=== PATIENT | female | born 1945 | race Caucasian/White ===

== ENCOUNTER → 2017-12-12 | Outpatient (CLI) | payer MEDICARE ==
[~2017-12-12] MED LIST: AMLO5TAB2 PO; ASPI-1012 PO; CARV6.25 PO; CYCL10TA7 PO; FURO40TA5 PO; MIRALAX; NAPR-1180 PO; OMEP20TA25 PO; TRAM50TA4 PO
== END | disposition home or self-care (01) ==
LOC: OIH 10:50
PROVIDERS: ATTEND Internal Medicine
DX: M16.0 Bilateral primary osteoarthritis of hip (principal)
CPT/HCPCS: 73521

== ENCOUNTER → 2018-09-24 | Outpatient (CLI) | payer MEDICARE ==
[~2018-09-24] MED LIST changes: -AMLO5TAB2 PO; +AMLO5TAB9 PO
== END | disposition home or self-care (01) ==
LOC: OIH 10:54
PROVIDERS: ATTEND Internal Medicine
DX: M47.816 Spondylosis without myelopathy or radiculopathy, lumbar region (principal); M54.17 Radiculopathy, lumbosacral region; M62.830 Muscle spasm of back; R59.9 Enlarged lymph nodes, unspecified; M48.061 Spinal stenosis, lumbar region without neurogenic claudication
CPT/HCPCS: 72100

== ENCOUNTER → 2018-10-15 | Outpatient (CLI) | payer MEDICARE | END | disposition home or self-care (01) | LOC: RAH 10:57 | PROVIDERS: ATTEND Orthopaedic Surgery | DX: S83.282A Other tear of lateral meniscus, current injury, left knee, initial encounter (principal); S83.242A Other tear of medial meniscus, current injury, left knee, initial encounter; M17.12 Unilateral primary osteoarthritis, left knee; M25.462 Effusion, left knee; M71.22 Synovial cyst of popliteal space [Baker], left knee; M85.88 Other specified disorders of bone density and structure, other site; X58.XXXA Exposure to other specified factors, initial encounter; Y93.89 Activity, other specified; Y92.89 Other specified places as the place of occurrence of the external cause; Y99.8 Other external cause status | CPT/HCPCS: 73721 ==

== ENCOUNTER → 2019-02-02 | Outpatient (CLI) | payer MEDICARE | END | disposition home or self-care (01) | LOC: OIH 10:07 | PROVIDERS: ATTEND Internal Medicine | DX: M16.12 Unilateral primary osteoarthritis, left hip (principal); M85.852 Other specified disorders of bone density and structure, left thigh | CPT/HCPCS: 73502 ==

== ENCOUNTER → 2019-04-15 | Outpatient (CLI) | payer MEDICARE ==
[~2019-04-15] MED LIST changes: +ATOR10TA PO; +CALC-877 PO; +DICLOFENAC PO; +[UNRECOGNIZED DRUG - OTHER] PO
== END | disposition home or self-care (01) ==
LOC: OIH 08:17
PROVIDERS: ATTEND Internal Medicine
DX: M47.814 Spondylosis without myelopathy or radiculopathy, thoracic region (principal); I10 Essential (primary) hypertension
CPT/HCPCS: 71046

== ENCOUNTER 2019-04-21 15:00 | Inpatient (IN) | payer MEDICARE ==
[~2019-04-21] VITALS: Ht 160 cm; Wt 71.0 kg
[~2019-04-21 15:00] MED LIST changes: -ATOR10TA PO; -CALC-877 PO; -CYCL10TA7 PO; -DICLOFENAC PO; -FURO40TA5 PO; -NAPR-1180 PO; -[UNRECOGNIZED DRUG - OTHER] PO
[2019-04-21 15:55] LABS: APPEARANCE,URINE Clear (CLEAR); BILIRUBIN,URINE Negative (NEGATIVE); COLOR,URINE Yellow (YELLOW); GLUCOSE, URINE (UA) Negative (NEGATIVE); KETONES,URINE Negative (NEGATIVE); LEUKOCYTE ESTERASE ,URINE Negative (NEGATIVE); NITRATE,URINE Negative (NEGATIVE); OCCULT BLOOD,URINE Negative (NEGATIVE); PH,URINE 5.5 (5.0-8.0); PROTEIN,URINE Negative (NEGATIVE); UROBILINOGEN,URINE 0.2 mg/dL (0.2-1.0)
[2019-04-21 16:02] LABS: INR 1.03 (0.85-1.15); PROTHROMBIN TIME 10.8 SEC (9.6-11.6)
[2019-04-21 16:21] VITALS: BP 138/59
[2019-04-21] MEDS ORDERED: ATOR10TA PO (16:40)
[2019-04-21] MEDS ORDERED: PHARMACY COMMUNICATION MISC SCH (16:45)
[2019-04-21] MEDS ORDERED: [UNRECOGNIZED DRUG - OTHER] PO (16:51)
[2019-04-21] MEDS ORDERED: CALC-877 PO (16:51)
[2019-04-21] MEDS ORDERED: DICLOFENAC PO (16:51)
[2019-04-22] VITALS (25 sets, daily range): BP systolic 127–170; BP diastolic 50–80
[2019-04-22] MEDS: CEFAZOLIN SODIUM 1 GM VIAL IVP SCH ×3 (06:00→21:29)
[2019-04-22] MEDS ORDERED: ACETAMINOPHEN EXTRA STRENGTH 500 MG TABLET ONE (08:20)
[2019-04-22] MEDS ORDERED: KETOROLAC TROMETHAMINE 15MG/ML ONE (08:20)
[2019-04-22] MEDS ORDERED: OXYCODONE HCL 10 MG TAB.SR.12H PO ONE (08:21)
[2019-04-22] MEDS ORDERED: CELECOXIB 200 MG CAP ONE (08:21)
[2019-04-22] MEDS ORDERED: CEFAZOLIN SODIUM 1 GM VIAL ONE ×4 (08:22)
[2019-04-22] MEDS ORDERED: TRANEXAMIC ACID 1000MG/10ML IV ONE (08:23)
[2019-04-22] MEDS ORDERED: LACTATED RINGERS 1000ML 1,000 ML IV ONE (08:28)
[2019-04-22] MEDS ORDERED: KETOROLAC TROMETHAMINE 15MG/ML IV SCH (09:00)
[2019-04-22] MEDS ORDERED: ACETAMINOPHEN EXTRA STRENGTH 500 MG TABLET PO SCH (09:00)
[2019-04-22] MEDS ORDERED: OXYCODONE HCL 10 MG TAB.SR.12H PO SCH (09:00)
[2019-04-22] MEDS ORDERED: CELECOXIB 200 MG CAP PO SCH (09:00)
[2019-04-22] MEDS ORDERED: TRANEXAMIC ACID 1,000 MG in SODIUM CHLORIDE 0.9% 100 ML IV SCH (09:00)
--- NOTE | 2019-04-22 09:06 | NUR ---
POTENTIAL FOR INFECTION: NO SHAVING NEEDED TO LEFT KNEE / LEG ASSESSED PER CHARLI VALLE. WIPED WITH BETY: 2% CHLORHEXIDINE GLUCONATE CLOTH PATIENTS PRE-OP SKIN PREP.
[2019-04-22] MEDS ORDERED: MIDAZOLAM HCL 1 MG/ML 2ML VIAL ONE (09:42)
[2019-04-22] MEDS ORDERED: LIDOCAINE PF 2% 5ML ABBOJECT ONE ×2 (10:11→10:13)
[2019-04-22] MEDS ORDERED: SUCCINYLCHOLINE 200MG/10ML SYR ONE (10:11)
[2019-04-22] MEDS ORDERED: GLYCOPYRROLATE 1 MG/5 ML SYRINGE ONE (10:11)
[2019-04-22] MEDS ORDERED: DEXAMETHASONE SOD PHOSPHATE 10MG/ML 1ML VIAL ONE (10:11)
[2019-04-22] MEDS ORDERED: FENTANYL CITRATE PF 50 MCG/1 ML 2ML VIAL ONE (10:12)
[2019-04-22] MEDS ORDERED: NEOSTIGMINE 5MG/5ML SYR IV ONE (10:12)
[2019-04-22] MEDS ORDERED: ONDANSETRON HCL 4 MG/2 ML VIAL ONE (10:12)
[2019-04-22] MEDS ORDERED: ROCURONIUM 10MG/1ML SYR 10 MG/ML ML ONE (10:12)
[2019-04-22] MEDS ORDERED: PROPOFOL 10 MG/ML 20ML VIAL IV ONE (10:13)
[2019-04-22] MEDS ORDERED: ROPIVACAINE 0.5% 5MG/ML 30ML IJ ONE (10:20)
[2019-04-22] MEDS ORDERED: SODIUM CHLORIDE 0.9% 10 ML VIAL ONE (10:52)
[2019-04-22] MEDS ORDERED: PHENYLEPHRINE HCL 10 MG/ML 1ML VIAL IV ONE (11:45)
[2019-04-22] MEDS ORDERED: DiphenhydrAMINE HCL 50 MG/ML VIAL IVP PRN (12:30)
[2019-04-22] MEDS ORDERED: ONDANSETRON HCL 4 MG/2 ML VIAL IVP PRN (12:30)
[2019-04-22] MEDS ORDERED: TRAMADOL HCL 50 MG TABLET PO PRN (12:30)
[2019-04-22] MEDS: ACETAMINOPHEN EXTRA STRENGTH 500 MG TABLET PO SCH ×2 (12:30→21:31)
[2019-04-22] MEDS ORDERED: OXYCODONE HCL 5 MG TAB PO PRN (12:30)
[2019-04-22] MEDS: SODIUM CHLORIDE 0.9% 1000ML 1,000 ML IV SCH ×3 (13:05→21:46)
[2019-04-22] MEDS ORDERED: CEFAZOLIN SODIUM 1 GM VIAL IVP SCH (17:30)
[2019-04-22] MEDS: CELECOXIB 200 MG CAP PO SCH (21:29)
[2019-04-22] MEDS: PREGABALIN 25 MG CAP PO SCH (21:29)
[2019-04-22] MEDS: ASPIRIN 81MG TAB.CHEW PO SCH (21:29)
[2019-04-22] MEDS: FAMOTIDINE 20MG TAB 20 MG TAB PO SCH (21:29)
[2019-04-22] MEDS: ATORVASTATIN CALCIUM 10 MG TABLET PO SCH (21:30)
[2019-04-22] MEDS: CARVEDILOL 6.25 MG TABLET PO SCH (21:30)
[2019-04-22] MEDS: CALCIUM CARBONATE 500 MG TABLET PO SCH (21:30)
[2019-04-23] VITALS (7 sets, daily range): BP systolic 116–151; BP diastolic 50–97
[2019-04-23] MEDS: KETOROLAC TROMETHAMINE 15MG/ML IV PRN ×3 (01:55→13:51)
[2019-04-23] MEDS: CEFAZOLIN SODIUM 1 GM VIAL IVP SCH (04:03)
[2019-04-23] MEDS: ACETAMINOPHEN EXTRA STRENGTH 500 MG TABLET PO SCH ×3 (04:04→21:37)
[2019-04-23] MEDS: SODIUM CHLORIDE 0.9% 1000ML 1,000 ML IV SCH (08:27)
[2019-04-23] MEDS: PANTOPRAZOLE SODIUM 40 MG TABLET.DR PO SCH (08:41)
[2019-04-23] MEDS: FAMOTIDINE 20MG TAB 20 MG TAB PO SCH ×2 (09:00→21:36)
[2019-04-23] MEDS: CARVEDILOL 6.25 MG TABLET PO SCH ×2 (09:00→21:36)
[2019-04-23] MEDS: PREGABALIN 25 MG CAP PO SCH ×2 (10:17→21:36)
[2019-04-23] MEDS: CELECOXIB 200 MG CAP PO SCH ×2 (10:17→21:36)
[2019-04-23] MEDS: CALCIUM CARBONATE 500 MG TABLET PO SCH ×2 (10:17→21:36)
[2019-04-23] MEDS: POLYETHYLENE GLYCOL 3350 17 GM POWD.PACK PO SCH (10:18)
[2019-04-23] MEDS: AMLODIPINE BESYLATE 5 MG TAB PO SCH (10:18)
[2019-04-23] MEDS: ASPIRIN 81MG TAB.CHEW PO SCH ×2 (10:18→21:35)
[2019-04-23] MEDS: OXYCODONE HCL 5 MG TAB PO PRN ×2 (15:24→23:31)
--- NOTE | 2019-04-23 17:00 | NUR ---
INITIAL AND REFERRAL MET W PATIENT ALONE, [place], LIVES W SPOUSE, GARY MURRAY, DRIVES, HAS A WALKER, DECLINING SHOWER CHAIR, STATES MOBILE HOME BATHROOM IS TOO SMALL. CONSENT AND REFERRAL TO [facility] CALLED CHART TAGGED Addendum: 04/24/19 at 1849 by CHRISTINA GONZALEZ RN CM Amended: Links added.
[2019-04-23] MEDS: ATORVASTATIN CALCIUM 10 MG TABLET PO SCH (21:36)
[2019-04-23] MEDS: TEMAZEPAM 15 MG CAPSULE PO PRN (21:42)
[2019-04-24 03:55] VITALS: BP 127/63
[2019-04-24] MEDS: ACETAMINOPHEN EXTRA STRENGTH 500 MG TABLET PO SCH ×3 (04:33→20:30)
[2019-04-24] MEDS: PANTOPRAZOLE SODIUM 40 MG TABLET.DR PO SCH (07:30)
[2019-04-24 08:00] VITALS: BP 128/63
[2019-04-24] MEDS: POLYETHYLENE GLYCOL 3350 17 GM POWD.PACK PO SCH (08:51)
[2019-04-24] MEDS: FAMOTIDINE 20MG TAB 20 MG TAB PO SCH ×2 (08:51→20:53)
[2019-04-24] MEDS: PREGABALIN 25 MG CAP PO SCH ×2 (08:52→20:53)
[2019-04-24] MEDS: CALCIUM CARBONATE 500 MG TABLET PO SCH ×2 (08:52→20:53)
[2019-04-24] MEDS: ASPIRIN 81MG TAB.CHEW PO SCH ×2 (08:52→20:53)
[2019-04-24] MEDS: CELECOXIB 200 MG CAP PO SCH ×2 (08:52→20:53)
[2019-04-24] MEDS: AMLODIPINE BESYLATE 5 MG TAB PO SCH (09:00)
[2019-04-24] MEDS: CARVEDILOL 6.25 MG TABLET PO SCH ×2 (09:00→20:53)
[2019-04-24] MEDS: KETOROLAC TROMETHAMINE 15MG/ML IV PRN (11:27)
[2019-04-24 12:00] VITALS: BP 126/59
[2019-04-24] MEDS: OXYCODONE HCL 5 MG TAB PO PRN ×2 (15:19→20:54)
[2019-04-24 16:00] VITALS: BP 129/44
--- NOTE | 2019-04-24 19:00 | NUR ---
DRESSING CHANGE DONE NO SIGNS OF BLEEDING NOTED NO SIGNS OF INFECTION NOTED
[2019-04-24 19:28] VITALS: BP 124/63
[2019-04-24] MEDS: ATORVASTATIN CALCIUM 10 MG TABLET PO SCH (20:53)
[2019-04-24] MEDS: TEMAZEPAM 15 MG CAPSULE PO PRN (22:16)
[2019-04-24 23:15] VITALS: BP 129/52
[2019-04-25 03:00] VITALS: BP 129/75
[2019-04-25] MEDS: OXYCODONE HCL 5 MG TAB PO PRN ×2 (04:23→09:02)
[2019-04-25] MEDS: ACETAMINOPHEN EXTRA STRENGTH 500 MG TABLET PO SCH ×2 (04:28→13:22)
[2019-04-25] MEDS: PANTOPRAZOLE SODIUM 40 MG TABLET.DR PO SCH (06:43)
[2019-04-25 08:00] VITALS: BP 128/69
[2019-04-25] MEDS: CELECOXIB 200 MG CAP PO SCH (09:02)
[2019-04-25] MEDS: FAMOTIDINE 20MG TAB 20 MG TAB PO SCH (09:02)
[2019-04-25] MEDS: PREGABALIN 25 MG CAP PO SCH (09:02)
[2019-04-25] MEDS: POLYETHYLENE GLYCOL 3350 17 GM POWD.PACK PO SCH (09:03)
[2019-04-25] MEDS: AMLODIPINE BESYLATE 5 MG TAB PO SCH (09:03)
[2019-04-25] MEDS: ASPIRIN 81MG TAB.CHEW PO SCH (09:03)
[2019-04-25] MEDS: CALCIUM CARBONATE 500 MG TABLET PO SCH (09:03)
[2019-04-25] MEDS: CARVEDILOL 6.25 MG TABLET PO SCH (09:03)
[2019-04-25 11:47] VITALS: BP 115/63
[2019-04-25] MEDS ORDERED: BISACODYL 10 MG SUPP.RECT RC PRN (12:30)
[2019-04-25] MEDS ORDERED: ASPI-1005 PO (14:03)
[2019-04-25] MEDS ORDERED: HYDR-4457 PO (14:03)
--- NOTE | 2019-04-25 16:00 | NUR ---
pt stated understanding of all d/c instruction on after care for a knee replacement including wound care, signs and symptoms of infection, follow up w/ dr parker, [facility] of walker and going so snf [facility]; d/c report called and faxed to [facility] and they will be sending there van to pick pt up. dressing to right knee changed in preperation for pt leaving.
== END 2019-04-25 16:45 | DRG 470 ==
LOC: DAHIP 04-22 06:51 → 4AH 04-22 12:53
PROVIDERS: ADMIT Orthopaedic Surgery; ATTEND Orthopaedic Surgery
PROC: 0SRD0J9 Replacement of Left Knee Joint with Synthetic Substitute, Cemented, Open Approach (ICD-10-PCS; principal; 2019-04-22 10:08)
DX: M17.12 Unilateral primary osteoarthritis, left knee (principal); I10 Essential (primary) hypertension; K21.9 Gastro-esophageal reflux disease without esophagitis; M79.7 Fibromyalgia; M48.00 Spinal stenosis, site unspecified; Z96.651 Presence of right artificial knee joint; I25.10 Atherosclerotic heart disease of native coronary artery without angina pectoris; Z87.891 Personal history of nicotine dependence
CPT/HCPCS: 36415; 81003; 82948; 85610; 87641; 88304; 88311; 93005; 96374; 97039; G0378; J0330; J0690; J1100; J1885; J2001; J2250; J2370; J2405; J2704; J2710; J2795; J3010; J3490; J7030; J7120

== ENCOUNTER → 2019-05-11 | Outpatient (CLI) | payer MEDICARE ==
[~2019-05-11] MED LIST changes: -AMLO5TAB9 PO; +ASPI-1005 PO; -ASPI-1012 PO; +ATOR10TA PO; +CALC-877 PO; +DICLOFENAC PO; +HYDR-4457 PO; +[UNRECOGNIZED DRUG - OTHER] PO
== END | disposition home or self-care (01) ==
LOC: OIH 15:15
PROVIDERS: ATTEND Internal Medicine
DX: R10.2 Pelvic and perineal pain (principal); M16.10 Unilateral primary osteoarthritis, unspecified hip
CPT/HCPCS: 72170

== ENCOUNTER → 2019-05-19 | Outpatient (CLI) | payer MEDICARE | END | disposition home or self-care (01) | LOC: RAH 09:24 | PROVIDERS: ATTEND Internal Medicine | DX: K57.90 Diverticulosis of intestine, part unspecified, without perforation or abscess without bleeding (principal); M47.815 Spondylosis without myelopathy or radiculopathy, thoracolumbar region; M43.16 Spondylolisthesis, lumbar region; I70.0 Atherosclerosis of aorta | CPT/HCPCS: 74176 ==

== ENCOUNTER → 2020-09-07 | Outpatient (CLI) | payer MEDICARE | END | disposition home or self-care (01) | LOC: OIH 10:30 | PROVIDERS: ATTEND Internal Medicine | DX: M16.12 Unilateral primary osteoarthritis, left hip (principal); M51.16 Intervertebral disc disorders with radiculopathy, lumbar region; K59.00 Constipation, unspecified; M25.552 Pain in left hip; M41.86 Other forms of scoliosis, lumbar region; M85.88 Other specified disorders of bone density and structure, other site | CPT/HCPCS: 72100; 73502 ==

== ENCOUNTER → 2020-10-17 | Outpatient (CLI) | payer MEDICARE | END | disposition home or self-care (01) | LOC: RAH 13:04 | PROVIDERS: ATTEND Internal Medicine | DX: M50.023 Cervical disc disorder at C6-C7 level with myelopathy (principal); M51.06 Intervertebral disc disorders with myelopathy, lumbar region; M47.12 Other spondylosis with myelopathy, cervical region; M25.552 Pain in left hip; M43.16 Spondylolisthesis, lumbar region; M48.061 Spinal stenosis, lumbar region without neurogenic claudication; M48.02 Spinal stenosis, cervical region; M25.78 Osteophyte, vertebrae | CPT/HCPCS: 72141; 72148 ==

== ENCOUNTER → 2020-12-05 | Outpatient (CLI) | payer MEDICARE | END | disposition home or self-care (01) | LOC: RAH 14:15 | PROVIDERS: ATTEND Neurological Surgery | DX: M51.34 Other intervertebral disc degeneration, thoracic region (principal); M48.04 Spinal stenosis, thoracic region; M25.78 Osteophyte, vertebrae | CPT/HCPCS: 72146 ==

== ENCOUNTER → 2024-09-15 | Outpatient (CLI) | payer OTHER ==
[~2024-09-15] MED LIST changes: +OMEP20TA20 PO; -OMEP20TA25 PO
--- NOTE | 2024-09-15 11:57 | HMCIMG ---
BONE DENSITOMETRY: HISTORY: Age-related osteoporosis without current pathological fracture Comparison: None FINDINGS: BMD measured at left wrist is 0.307 g/cm2 with a T-score of -5.0 This patient is considered osteoporotic according to WHO criteria. Fracture risk is high. BMD measured at Left Femoral Neck is 0.503 g/cm2 with a T-score of -3.1 This patient is considered osteoporotic according to WHO criteria. Fracture risk is high. BMD measured at Left Femoral Total is 0.660 g/cm2 with a T-score of -2.3 This patient is considered osteoporotic according to WHO criteria. Fracture risk is high. IMPRESSION: Osteoporosis. High risk for atraumatic fractures. Treatment and follow-up recommended.
== END | disposition home or self-care (01) ==
LOC: RAH 08:35
PROVIDERS: ATTEND Internal Medicine
DX: M81.0 Age-related osteoporosis without current pathological fracture (principal); M85.88 Other specified disorders of bone density and structure, other site
CPT/HCPCS: 77080